=== PATIENT | male | born 1955 | race African-American/Black ===

== ENCOUNTER 2020-04-17 14:39 | Emergency (ER) | payer MEDICARE, OTHER ==
[~2020-04-17] VITALS: Ht 170.2 cm; Wt 77.9 kg
[~2020-04-17 14:39] MED LIST: DOCU-131 PO; DOXY100T PO; HYDR-3246 PO; HYDR25TA6 PO; LEVO500T47 PO; LOSA100T14 PO; METH750T2 PO; METH750T87 PO; METO50TA6 PO; OXYC-302 PO
[2020-04-17 14:45] VITALS: BP 135/82
[2020-04-17] MEDS ORDERED: KETOROLAC 30 MG/1 ML ONE (15:15)
[2020-04-17] MEDS ORDERED: KETOROLAC 30 MG/1 ML IM ONE (16:00)
--- NOTE | 2020-04-17 16:05 | NUR ---
xr c spine pending us normal given ice pack/toradol. as
== END 2020-04-17 16:32 | disposition home or self-care (01) ==
LOC: ED 16:01
DX: M54.12 Radiculopathy, cervical region (principal); M79.601 Pain in right arm; G89.29 Other chronic pain; I10 Essential (primary) hypertension
CPT/HCPCS: 72050; 93971; 96372; 99284; J1885